=== PATIENT | female | born 1985 | race Caucasian/White ===

== ENCOUNTER 2017-03-30 11:21 | Emergency (ER) | payer OTHER ==
[~2017-03-30] VITALS: Ht 172.7 cm; Wt 171.9 kg
[~2017-03-30 11:21] MED LIST: IBUP-2213 PO; NAPR500T1 PO
[2017-03-30 11:26] VITALS: BP 134/78
--- NOTE | 2017-03-30 12:15 | NUR ---
PT AMBULATED TO OVERFLOW CHAIR 1.
--- NOTE | 2017-03-30 12:16 | NUR ---
PATIENT PRESENTS TO ED WITH MID LOWER BACK PAIN SINCE 0900 THIS AM; DENIES INJURY OR FALL; DENIES HX; DENIES N/V/D; SKIN IS PINK/WARM/DRY; AAOX4 WITH EVEN AND STEADY GAIT; LUNGS CLEAR BL; HR EVEN AND REGULAR; PT DENIES ANY FEVER, CP, SOB, OR COUGH AT THIS TIME; PATIENT STATES PAIN OF 10/10 AT THIS TIME; VSS; PATIENT POSITIONED FOR COMFORT; HOB ELEVATED; BEDRAILS UP X2; BED DOWN. ER MD MADE AWARE OF PT STATUS.
--- NOTE | 2017-03-30 13:02 | NUR ---
ASKED PT IF SHE CAN GIVE URINE SPECIMEN;"PT STATES " I CAN NOT GO AT THIS TIME"I'LL GIVE IT TO YOU IF I HAVE URINATED"
--- NOTE | 2017-03-30 13:20 | NUR ---
AAO PT BEING EVALUATED BY DR HODGE
--- NOTE | 2017-03-30 13:24 | NUR ---
ASKED PT IF SHE CAN GIVE URINE SPECMEN AT THIS TIME;EXPLAINED TO PT THAT WE NEED IT TO CHECK IF SHE HAS INFXN IN HER URINE;PT STATES "OKAY"
[2017-03-30] MEDS ORDERED: KETOROLAC 60 MG/2 ML VIAL IM ONE (13:30)
--- NOTE | 2017-03-30 14:30 | NUR ---
STILL IN PAIN.ERMD MADE AWARE,NO FARTHER ORDER
[2017-03-30 14:32] VITALS: BP 107/43
--- NOTE | 2017-03-30 14:32 | NUR ---
AMBULATED WITH STEADY GAIT
== END 2017-03-30 14:32 | disposition home or self-care (01) ==
LOC: MED 11:21
DX: M54.5 Low back pain (principal); Z79.899 Other long term (current) drug therapy
CPT/HCPCS: 72100; 81002; 81025; 96372; 99284; J1885

== ENCOUNTER 2017-12-30 11:16 | Emergency (ER) | payer OTHER ==
[~2017-12-30] VITALS: Ht 172.7 cm; Wt 165.6 kg
[~2017-12-30 11:16] MED LIST changes: +NAPR-54 PO; -NAPR500T1 PO
[2017-12-30 11:19] VITALS: BP 140/91
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
[2017-12-30] MEDS ORDERED: IBUPROFEN 600 MG TAB PO ONE (11:45)
[2017-12-30] MEDS ORDERED: traMADol 50 MG TAB PO ONE (11:45)
[2017-12-30 11:57] VITALS: BP 140/91
== END 2017-12-30 11:55 | disposition home or self-care (01) ==
LOC: MED 11:16
DX: M54.5 Low back pain (principal); G89.29 Other chronic pain; Z79.899 Other long term (current) drug therapy
CPT/HCPCS: 99283

== ENCOUNTER 2019-04-30 04:02 | Emergency (ER) | payer OTHER ==
[~2019-04-30] VITALS: Ht 172.7 cm; Wt 178.3 kg
[2019-04-30 04:08] VITALS: BP 148/92
--- NOTE | 2019-04-30 04:08 | NUR ---
PT AMBULATED TO BED #6
--- NOTE | 2019-04-30 04:17 | NUR ---
PT ASSESSMENT COMPLETE. PT IN RESTROOM ATTEMPTING URINE SPECIMEN
[2019-04-30] MEDS ORDERED: NACL 0.9% 1,000 ML IV SCH (04:42)
[2019-04-30] MEDS ORDERED: MORPHINE SULFATE 4 MG/ML SYR IVP ONE ×2 (04:45→05:40)
[2019-04-30] MEDS ORDERED: ONDANSETRON 4 MG/2 ML VIAL IVP ONE (04:45)
[2019-04-30 05:15] LABS: APPEARANCE,URINE SL CLOUDY (CLEAR); BILIRUBIN,URINE NEGATIVE (NEGATIVE); BLOOD, URINE 3+ (NEGATIVE); COLOR,URINE YELLOW (YELLOW); LEUKOCYTE ESTERASE ,URINE NEGATIVE (NEGATIVE); NITRITE, URINE NEGATIVE (NEGATIVE); UGLUCOSE NEGATIVE (NEGATIVE)
[2019-04-30 05:15] LABS: BASOPHILS # (AUTO) 0.1 K/uL (0.00-0.22); BASOPHILS % (AUTO) 0.5 % (0.0-2.0); EOSINOPHILS # (AUTO) 0.2 K/uL (0-0.4); EOSINOPHILS % (AUTO) 1.9 % (0.0-4.0); HEMATOCRIT 40.5 % (36-48); HEMOGLOBIN 12.7 g/dL (12.0-16.0); LYMPHOCYTES # (AUTO) 3.7 K/uL (2.5-16.5); LYMPHOCYTES % (AUTO) 32.8 % (20.5-51.1); MEAN CORPUSCULAR HEMOGLOBIN 24 pg (27-31); MEAN CORPUSCULAR HGB CONC 31 g/dL (33-37); MEAN CORPUSCULAR VOLUME 77.8 fL (80-94); MONOCYTES # (AUTO) 0.7 K/uL (0.8-1.0); MONOCYTES % (AUTO) 5.9 % (1.7-9.3); NEUTROPHILS # (AUTO) 6.6 K/uL (1.8-7.7); NEUTROPHILS % (AUTO) 58.9 % (42.2-75.2); PLATELET COUNT (AUTO) 352 K/uL (140-450); RED CELL DISTRIBUTION WIDTH 15.7 % (11.6-13.7); WHITE BLOOD COUNT (AUTO) 11.3 K/uL (4.8-10.8)
--- NOTE | 2019-04-30 05:19 | NUR ---
PT TAKEN TO CT VIA W/C
[2019-04-30 05:23] LABS: ANION GAP 14.4 (8-16); CARBON DIOXIDE 29.8 mmol/L (21-32); CREATININE 0.6 mg/dL (0.6-1.3); POTASSIUM 4.2 mmol/L (3.5-5.1)
[2019-04-30 05:26] LABS: WBC,URINE 0-5 /HPF (0-5)
--- NOTE | 2019-04-30 05:27 | NUR ---
PT RETURNED FROM CT VIA W/C
[2019-04-30 05:29] LABS: ALBUMIN 3.4 g/dL (3.4-5.0); TOTAL BILIRUBIN 0.3 mg/dL (0.0-1.0)
--- NOTE | 2019-04-30 05:39 | NUR ---
PT STILL HAS C/O 8/10 ABD PAIN. ERM MADE AWARE.
[2019-04-30 05:51] VITALS: BP 123/72
--- NOTE | 2019-04-30 06:40 | NUR ---
PT REPORTS DECREASED PAIN, 0/10. WILL CONTINUE TO MONITOR.
--- NOTE | 2019-04-30 07:06 | NUR ---
Patient discharged with v/s stable. Written and verbal after care instructions given and explained BY DR. MUNOZ. Patient alert, oriented and verbalized understanding of instructions. Ambulatory with steady gait. All questions addressed prior to discharge. ID band removed. Patient advised to follow up with PMD. Rx of MILK OF MAGNESIA given. Patient educated on indication of medication including possible reaction and side effects. Opportunity to ask questions provided and answered.
== END 2019-04-30 07:09 | disposition home or self-care (01) ==
LOC: MED 04:02
DX: K59.00 Constipation, unspecified (principal); E66.01 Morbid (severe) obesity due to excess calories; Z68.43 Body mass index [BMI] 50.0-59.9, adult; Z90.49 Acquired absence of other specified parts of digestive tract; Z98.890 Other specified postprocedural states; Z79.899 Other long term (current) drug therapy
CPT/HCPCS: 36415; 74176; 80053; 81001; 81025; 85025; 96374; 96375; 96376; 99284; J2270; J2405

== ENCOUNTER 2021-01-12 14:08 | Emergency (ER) | payer OTHER ==
[~2021-01-12] VITALS: Ht 172.7 cm; Wt 181.4 kg
[2021-01-12 14:24] VITALS: BP 151/77
--- NOTE | 2021-01-12 15:00 | NUR ---
35 y/o female c/o lower back pain with dizziness provoked by repositioning self from sitting to standing x7 days. Denies injury/trauma. Pt has hx of chronic back pain. Difficulty getting up from chair. ContinuosPain level 01/18. [place] taken at 3am, without relief. Pt also c/o blood clots due to menstrual cycle. Per pt the clots are "as big as my hand" [place]es:[facility] Med hx: chronic back pain
[2021-01-12] MEDS ORDERED: HYDROcodone/APAP 5/325 MG 1 TAB TAB PO ONE (16:00)
[2021-01-12] MEDS ORDERED: KETOROLAC 30 MG/ML VIAL IM ONE (16:35)
[2021-01-12] MEDS ORDERED: ONDANSETRON 4 MG ODT PO ONE (16:35)
[2021-01-12] MEDS ORDERED: MORPHINE SULFATE 4 MG/ML SYR IM ONE (16:35)
--- NOTE | 2021-01-12 16:45 | NUR ---
pt ambulated to bed
[2021-01-12 16:48] LABS: BASOPHILS % (AUTO) 0.4 % (0.0-2.0); EOSINOPHILS # (AUTO) 0.2 K/uL (0-0.4); EOSINOPHILS % (AUTO) 2.4 % (0.0-4.0); LYMPHOCYTES # (AUTO) 2.7 K/uL (2.5-16.5); LYMPHOCYTES % (AUTO) 30.3 % (20.5-51.1); MEAN CORPUSCULAR HEMOGLOBIN 18 pg (27-31); MEAN CORPUSCULAR HGB CONC 28 g/dL (33-37); MEAN CORPUSCULAR VOLUME 65.1 fL (80-94); MONOCYTES # (AUTO) 0.6 K/uL (0.8-1.0); MONOCYTES % (AUTO) 7.1 % (1.7-9.3); NEUTROPHILS # (AUTO) 5.3 K/uL (1.8-7.7); NEUTROPHILS % (AUTO) 59.8 % (42.2-75.2); PLATELET COUNT (AUTO) 358 K/uL (140-450); RED BLOOD CELL COUNT(AUTO) 2.82 MIL/uL (4.20-5.40); RED CELL DISTRIBUTION WIDTH 20.5 % (11.6-13.7); WHITE BLOOD COUNT (AUTO) 8.9 K/uL (4.8-10.8)
[2021-01-12 16:50] LABS: HEMOGLOBIN 5.1 g/dL (12.0-16.0)
[2021-01-12 16:51] LABS: HEMATOCRIT 18.3 % (36-48)
[2021-01-12 17:03] LABS: ANION GAP 12.7 (8-16); CARBON DIOXIDE 27.3 mmol/L (21-32); CREATININE 0.6 mg/dL (0.6-1.3)
[2021-01-12] MEDS ORDERED: FERROUS SULFATE 325 MG TABEC PO ONE (17:30)
--- NOTE | 2021-01-12 17:30 | NUR ---
lab at bedside
--- NOTE | 2021-01-12 18:06 | NUR ---
PT UNABLE TO PROVIDE URINE AT THIS TIME, REQUESTING FOR APPLE JUICE. PER LAYLA OKAY TO GIVE. APPLE JUICE PROVIDED.
[2021-01-12 18:24] LABS: PROTHROMBIN TIME 9.9 secs (10.8-13.4)
[2021-01-12] MEDS ORDERED: MORPHINE SULFATE 4 MG/ML SYR ONE (18:53)
[2021-01-12] MEDS ORDERED: MORPHINE SULFATE 4 MG/ML SYR IVP ONE ×2 (18:55→22:05)
--- NOTE | 2021-01-12 19:25 | NUR ---
Pt report given to GEOVANNY FRANCES. Transfer of care at this time.
--- NOTE | 2021-01-12 19:27 | NUR ---
RECEIVED REPORT FROM CINTHIA FRANCES FOR CONTINUITY OF CARE. PT ON BED RESTING. VS STABLE. PT VERBALIZED TOLERABLE BACK PAIN AT THIS TIME 10/18.
[2021-01-12] MEDS ORDERED: DOCU-299 PO (20:08)
[2021-01-12] MEDS ORDERED: FERR325E14 PO (20:08)
--- NOTE | 2021-01-12 20:15 | NUR ---
BLOOD TRANFUSION STARTED. 2 RN VERIFICATION DONE PRIOR. VS STABLE. PT INSTRUCTED TO REPORT ANY REACTION. PT AMENABLE. WILL CONTINUE TO MONITOR.
[2021-01-12 21:48] LABS: APPEARANCE,URINE CLEAR (CLEAR); BILIRUBIN,URINE NEGATIVE (NEGATIVE); BLOOD, URINE 3+ (NEGATIVE); COLOR,URINE YELLOW (YELLOW); LEUKOCYTE ESTERASE ,URINE NEGATIVE (NEGATIVE); NITRITE, URINE NEGATIVE (NEGATIVE); UGLUCOSE NEGATIVE (NEGATIVE)
[2021-01-12 22:00] LABS: RBC,URINE 11-20 (MOD) /HPF (0-5)
--- NOTE | 2021-01-12 23:25 | NUR ---
1ST UNIT OF PRBC TRANFUSED. PT WITH NO REACTION. DENIES ANY PAIN OR DISCOMFORT AT THIS TIME. VITAL SIGNS STABLE. WILL CONTINUE TO MONITOR.
--- NOTE | 2021-01-12 23:45 | NUR ---
2ND UNIT OF PRBC TRANSFUSION STARTED. PRE TRANSFUSION VS STABLE. 2 RN VERIFICATION DONE. PT DENIES ANY PAIN OR DISCOMFORT AT THIS TIME. VITAL SIGNS STABLE.
[2021-01-13] MEDS ORDERED: MORPHINE SULFATE 4 MG/ML SYR IVP ONE (01:50)
--- NOTE | 2021-01-13 03:05 | NUR ---
2ND UNIT PRBC TRANSFUSED. NO REACTIONS NOTED. PT DENIES ANY PAIN OR DISCOMFORT. VS STABLE.
[2021-01-13 03:30] VITALS: BP 119/50
--- NOTE | 2021-01-13 03:30 | NUR ---
Patient discharged with v/s stable. Written and verbal after care instructions given and explained. Patient alert, oriented and verbalized understanding of instructions. Ambulatory with steady gait. All questions addressed prior to discharge. ID band AND IV ACCESS removed. Patient advised to follow up with PMD. Rx of COLACE, FERROUS SULFATE given. Patient educated on indication of medication including possible reaction and side effects. Opportunity to ask questions provided and answered.
== END 2021-01-13 03:30 | disposition home or self-care (01) ==
LOC: MED 14:08
DX: D50.9 Iron deficiency anemia, unspecified (principal); N92.1 Excessive and frequent menstruation with irregular cycle; E66.01 Morbid (severe) obesity due to excess calories; M54.50 Low back pain, unspecified; M53.3 Sacrococcygeal disorders, not elsewhere classified; G89.29 Other chronic pain; F17.200 Nicotine dependence, unspecified, uncomplicated; Z71.6 Tobacco abuse counseling; Z90.49 Acquired absence of other specified parts of digestive tract; Z79.899 Other long term (current) drug therapy; Z79.82 Long term (current) use of aspirin; Z79.1 Long term (current) use of non-steroidal anti-inflammatories (NSAID)
CPT/HCPCS: 36415; 80048; 81001; 82728; 83540; 84702; 85025; 85610; 85730; 86886; 86900; 86901; 86920; 87086; 96372; 96374; 96376; 99291; J1885; J2270; P9016; Q0162

== ENCOUNTER 2021-11-03 01:40 | Emergency (ER) | payer OTHER ==
[~2021-11-03] VITALS: Ht 172.7 cm; Wt 183.7 kg
[~2021-11-03 01:40] MED LIST changes: -NAPR-54 PO
[2021-11-03 01:47] VITALS: BP 132/105
--- NOTE | 2021-11-03 01:50 | NUR ---
OFF LOADED TO LOBBY.
[2021-11-03] MEDS ORDERED: ONDANSETRON 4 MG/2 ML VIAL IVP ONE (02:55)
[2021-11-03] MEDS ORDERED: MORPHINE SULFATE 4 MG/ML SYR IVP ONE (02:55)
[2021-11-03] MEDS ORDERED: NACL 0.9% 1,000 ML IV SCH (02:55)
[2021-11-03 03:20] LABS: BASOPHILS # (AUTO) 0.1 K/uL (0.00-0.22); BASOPHILS % (AUTO) 0.5 % (0.0-2.0); EOSINOPHILS % (AUTO) 0.2 % (0.0-4.0); HEMATOCRIT 30.5 % (36-48); HEMOGLOBIN 8.8 g/dL (12.0-16.0); LYMPHOCYTES # (AUTO) 2.3 K/uL (2.5-16.5); LYMPHOCYTES % (AUTO) 22.1 % (20.5-51.1); MEAN CORPUSCULAR HEMOGLOBIN 18 pg (27-31); MEAN CORPUSCULAR HGB CONC 29 g/dL (33-37); MEAN CORPUSCULAR VOLUME 62.3 fL (80-94); MONOCYTES # (AUTO) 0.6 K/uL (0.8-1.0); MONOCYTES % (AUTO) 5.6 % (1.7-9.3); NEUTROPHILS # (AUTO) 7.4 K/uL (1.8-7.7); NEUTROPHILS % (AUTO) 71.6 % (42.2-75.2); PLATELET COUNT (AUTO) 442 K/uL (140-450); RED CELL DISTRIBUTION WIDTH 18.3 % (11.6-13.7); WHITE BLOOD COUNT (AUTO) 10.4 K/uL (4.8-10.8)
--- NOTE | 2021-11-03 03:35 | NUR ---
PT WHEELCHAIRED TO BED 1
[2021-11-03 03:39] LABS: ALBUMIN 3.5 g/dL (3.4-5.0); ANION GAP 14.9 (8-16); CARBON DIOXIDE 24.5 mmol/L (21-32); CREATININE 0.5 mg/dL (0.6-1.3); POTASSIUM 3.4 mmol/L (3.5-5.1); TOTAL BILIRUBIN 0.5 mg/dL (0.0-1.0)
--- NOTE | 2021-11-03 03:48 | NUR ---
PT PLACED ON SENIOR VISUAL DESIGNER. IV ESTABLISHED TO LEFT AC 20G. PT MEDICATED PER ORDERS.
--- NOTE | 2021-11-03 03:51 | NUR ---
01/18 ABD PAIN XTONIGHT. +NAUSEA +DIARRHEA. DENIES VOMITING. HX:CHRONIC BACK PAIN NKA
--- NOTE | 2021-11-03 03:56 | NUR ---
PT REPORTS 8/10 PAIN, PT WAS GIVEN 4MG OF MORPHINE ABOUT 10MINS AGO. LAYLA EDWARDS.
--- NOTE | 2021-11-03 04:43 | NUR ---
CALLING OUT ASKING FOR FOOD AND DRINKS. EXPLAINED TO PT THAT SHE WILL HAVE FOOD WHEN TEST RESULTS ARE RETURNEY AND THEY PERMIT.
[2021-11-03] MEDS ORDERED: MORPHINE SULFATE 4 MG/ML SYR ONE (06:40)
[2021-11-03] MEDS ORDERED: MORPHINE SULFATE 4 MG/ML SYR IM ONE (06:40)
--- NOTE | 2021-11-03 06:40 | NUR ---
C/O PAIN, MEDICATED ORDERED
--- NOTE | 2021-11-03 08:00 | NUR ---
PT ASKED ABOUT FOOD, INFORMED PT WE WANTED TO WAIT FOR THE CT TO COMEBACK TO MAKE SURE NOTHING WAS WRONG. ALL PTS NEEDS MEET AT THIS TIME.
[2021-11-03] MEDS ORDERED: ACET-5629 PO (09:00)
--- NOTE | 2021-11-03 09:00 | NUR ---
PT RESTING IN BED. ALL PT NEEDS MEET AT THIS TIME
[2021-11-03] MEDS ORDERED: MORPHINE SULFATE 2 MG/ML SYR IVP ONE (09:40)
--- NOTE | 2021-11-03 10:15 | NUR ---
GAVE PT A SANDWICH WHEN DISCHARGING HER. PT HAD QUESTIONS ABOUT MEDS BEING PRESCRIBED. ASKED DR AND INFORMED PT OF THE DRS DECISION.
[2021-11-03 10:18] VITALS: BP 116/58
--- NOTE | 2021-11-03 10:22 | NUR ---
Patient discharged with v/s stable. Written and verbal after care instructions given and explained. Patient alert, oriented and verbalized understanding of instructions. Ambulatory with steady gait. All questions addressed prior to discharge. ID band removed. Patient advised to follow up with PMD. Rx of PERCOCET 5-325 given. Patient educated on indication of medication including possible reaction and side effects. Opportunity to ask questions provided and answered.
--- NOTE | 2021-11-03 11:34 | NUR ---
RECEIVED CALL FROM [facility], [facility] FROM [facility] ASKING QUESTIONS REGARDING PTS D/C. ACCORDING TO GENNA, PT CALLED FOR TRANSPORT ASSISTANCE. UPON DISCHARGE, PT REPORTED THAT SHE WAS ORDERING HER OWN [facility] HOME. PT WAS SEEN OUTSIDE OF AMBULANCE BAY, I ASKED PT HOW SHE WAS GETTING HOME. SHE STATED SHE WAS GOING THROUGH HER INSURANCE BECAUSE SHE DIDNT KNOW WE OFFERED TRANSPORTATION TO PHARMACY AND HOME. EXPLAINED TO PT THAT WE ONLY OFFER ONE WAY TRANSPORT IF REQUESTED BY PATIENT. BUILDING INSPECTOR CALLED FOR [facility] TRANSPORT TO PATIENTS HOME.
== END 2021-11-03 10:22 | disposition home or self-care (01) ==
LOC: MED 01:40
DX: R10.84 Generalized abdominal pain (principal)
CPT/HCPCS: 36415; 74176; 80053; 82150; 83690; 84702; 85025; 96361; 96372; 96374; 96375; 96376; 99285; J2270; J2405; J7030

== ENCOUNTER 2021-12-06 14:52 | Emergency (ER) | payer OTHER ==
[~2021-12-06] VITALS: Ht 172.7 cm; Wt 167.8 kg
[~2021-12-06 14:52] MED LIST changes: +ACET-5629 PO
[2021-12-06 15:16] VITALS: BP 148/106
[2021-12-06] MEDS ORDERED: KETOROLAC 30 MG/ML VIAL IM ONE (15:20)
--- NOTE | 2021-12-06 15:30 | NUR ---
36 Y/O FEMALE BIB SELF C/O LOW BACK PAIN, BODY ACHES, DECREASE IN APPETITE AND THIRST NKA PMH: "IRREGULAR PERIODS"
[2021-12-06 15:35] LABS: BASOPHILS % (AUTO) 0.4 % (0.0-2.0); EOSINOPHILS # (AUTO) 0.1 K/uL (0-0.4); EOSINOPHILS % (AUTO) 1.6 % (0.0-4.0); HEMATOCRIT 29.1 % (36-48); HEMOGLOBIN 8.7 g/dL (12.0-16.0); LYMPHOCYTES # (AUTO) 1.5 K/uL (2.5-16.5); LYMPHOCYTES % (AUTO) 20.4 % (20.5-51.1); MEAN CORPUSCULAR HEMOGLOBIN 18 pg (27-31); MEAN CORPUSCULAR HGB CONC 30 g/dL (33-37); MEAN CORPUSCULAR VOLUME 61.8 fL (80-94); MONOCYTES # (AUTO) 0.9 K/uL (0.8-1.0); NEUTROPHILS # (AUTO) 4.9 K/uL (1.8-7.7); NEUTROPHILS % (AUTO) 65.6 % (42.2-75.2); PLATELET COUNT (AUTO) 384 K/uL (140-450); RED BLOOD CELL COUNT(AUTO) 4.72 MIL/uL (4.20-5.40); RED CELL DISTRIBUTION WIDTH 18.7 % (11.6-13.7); WHITE BLOOD COUNT (AUTO) 7.5 K/uL (4.8-10.8)
--- NOTE | 2021-12-06 15:38 | NUR ---
pt swabbed for covid. specimen walked and handed to lab
[2021-12-06 15:47] LABS: APPEARANCE,URINE CLEAR (CLEAR); BILIRUBIN,URINE NEGATIVE (NEGATIVE); BLOOD, URINE NEGATIVE (NEGATIVE); COLOR,URINE YELLOW (YELLOW); LEUKOCYTE ESTERASE ,URINE NEGATIVE (NEGATIVE); NITRITE, URINE NEGATIVE (NEGATIVE); PH,URINE 7.5 (5.0-9.0); UGLUCOSE NEGATIVE (NEGATIVE)
[2021-12-06 15:54] LABS: ALBUMIN 3.3 g/dL (3.4-5.0); ANION GAP 13.6 (8-16); CARBON DIOXIDE 26.5 mmol/L (21-32); CREATININE 0.6 mg/dL (0.6-1.3); POTASSIUM 4.1 mmol/L (3.5-5.1); TOTAL BILIRUBIN 0.4 mg/dL (0.0-1.0)
[2021-12-06] MEDS ORDERED: FERR-20 PO ×2 (16:13→17:02)
[2021-12-06] MEDS ORDERED: IBUP-1842 PO ×2 (16:48→17:02)
[2021-12-06] MEDS ORDERED: ACET-10509 PO ×2 (16:48→17:02)
[2021-12-06] MEDS ORDERED: ONDA-188 PO ×2 (16:48→17:02)
[2021-12-06] MEDS ORDERED: NIRM1TAB PO (16:48)
[2021-12-06] MEDS ORDERED: BENZ-300 PO (17:02)
--- NOTE | 2021-12-06 17:14 | NUR ---
Patient discharged with v/s stable. Written and verbal after care instructions given and explained. Patient alert, oriented and verbalized understanding of instructions. Ambulatory with steady gait. All questions addressed prior to discharge. ID band removed. Patient advised to follow up with PMD. Rx of TYLENOL, MOTRIN, FESO4, PAXLOVID, ZOFRAN ODT given. Patient educated on indication of medication including possible reaction and side effects. Opportunity to ask questions provided and answered.
== END 2021-12-06 17:14 | disposition home or self-care (01) ==
LOC: MED 14:52
DX: U07.1 COVID-19 (principal); B34.9 Viral infection, unspecified; D64.9 Anemia, unspecified; Z90.49 Acquired absence of other specified parts of digestive tract; Z79.899 Other long term (current) drug therapy
CPT/HCPCS: 36415; 80053; 81003; 81025; 85025; 87426; 87804; 96372; 99283; J1885

== ENCOUNTER 2022-05-20 02:37 | Inpatient (IN) | payer OTHER ==
[~2022-05-20] VITALS: Ht 172.7 cm; Wt 183.7 kg
[~2022-05-20 02:37] MED LIST changes: +ACET-10509 PO; +BENZ-300 PO; +FERR-20 PO; +IBUP-1842 PO; +NIRM1TAB PO; +ONDA-188 PO
[2022-05-20 02:48] VITALS: BP 166/75
--- NOTE | 2022-05-20 02:49 | NUR ---
PT TO BED 11
[2022-05-20] MEDS ORDERED: KETOROLAC 30 MG/ML VIAL IM ONE (03:10)
[2022-05-20] MEDS ORDERED: oxyCODONE/APAP 5/325 MG 1 TAB TAB PO ONE (03:10)
[2022-05-20] MEDS ORDERED: CYCLOBENZAPRINE 10 MG TAB PO ONE (03:10)
[2022-05-20] MEDS ORDERED: MORPHINE SULFATE 10 MG/ML VIAL IM ONE (04:30)
[2022-05-20 04:34] LABS: APPEARANCE,URINE CLEAR (CLEAR); BILIRUBIN,URINE NEGATIVE (NEGATIVE); BLOOD, URINE LARGE (NEGATIVE); COLOR,URINE YELLOW (YELLOW); LEUKOCYTE ESTERASE ,URINE NEGATIVE (NEGATIVE); NITRITE, URINE NEGATIVE (NEGATIVE); UGLUCOSE NEGATIVE (NEGATIVE)
[2022-05-20] MEDS ORDERED: MORPHINE SULFATE 10 MG/ML VIAL IVP ONE (04:45)
[2022-05-20 04:56] LABS: RBC,URINE TOO NUMEROUS TO COUN /HPF (0-5); WBC,URINE 0-5 /HPF (0-5)
--- NOTE | 2022-05-20 05:12 | NUR ---
PT BACK FROM CT.
[2022-05-20 05:20] LABS: BASOPHILS % (AUTO) 0.3 % (0.0-2.0); EOSINOPHILS # (AUTO) 0.1 K/uL (0-0.4); EOSINOPHILS % (AUTO) 1.9 % (0.0-4.0); HEMATOCRIT 23.9 % (36-48); LYMPHOCYTES % (AUTO) 25.5 % (20.5-51.1); MEAN CORPUSCULAR HEMOGLOBIN 18 pg (27-31); MEAN CORPUSCULAR HGB CONC 29 g/dL (33-37); MEAN CORPUSCULAR VOLUME 60.8 fL (80-94); MONOCYTES # (AUTO) 0.5 K/uL (0.8-1.0); MONOCYTES % (AUTO) 6.3 % (1.7-9.3); NEUTROPHILS # (AUTO) 5.1 K/uL (1.8-7.7); PLATELET COUNT (AUTO) 257 K/uL (140-450); RED BLOOD CELL COUNT(AUTO) 3.92 MIL/uL (4.20-5.40); RED CELL DISTRIBUTION WIDTH 19.2 % (11.6-13.7); WHITE BLOOD COUNT (AUTO) 7.8 K/uL (4.8-10.8)
[2022-05-20 05:29] LABS: HEMOGLOBIN 6.9 g/dL (12.0-16.0)
[2022-05-20 05:32] LABS: ANION GAP 12.3 (8-16); CARBON DIOXIDE 27.6 mmol/L (21-32); CREATININE 0.6 mg/dL (0.6-1.3); POTASSIUM 3.9 mmol/L (3.5-5.1)
--- NOTE | 2022-05-20 05:44 | NUR ---
MED RECON COMPLETED.
[2022-05-20] MEDS ORDERED: HYDR-5080 PO (05:46)
[2022-05-20] MEDS ORDERED: ACETAMINOPHEN 325 MG TAB PO PRN (06:05)
[2022-05-20] MEDS ORDERED: MAGNESIUM OXIDE 400 MG TAB PO PRN (06:05)
[2022-05-20] MEDS ORDERED: MORPHINE SULFATE 4 MG/ML SYR IVP PRN (06:05)
[2022-05-20] MEDS ORDERED: POTASSIUM CHLORIDE 10 MEQ TABER PO PRN (06:05)
[2022-05-20] MEDS ORDERED: HYDROcodone/APAP 5/325 MG 1 TAB TAB PO PRN (06:05)
[2022-05-20] MEDS ORDERED: ONDANSETRON 4 MG/2 ML VIAL IVP PRN (06:05)
[2022-05-20] MEDS ORDERED: KCL 20 MEQ IN 100 mL PREMIX 200 ML IV PRN (06:05)
[2022-05-20] MEDS ORDERED: MAG SULF 2000 MG/WATER PREMIX 50 ML IV PRN (06:05)
[2022-05-20] MEDS ORDERED: KETOROLAC 30 MG/ML VIAL IVP PRN (06:10)
[2022-05-20 06:12] VITALS: BP 137/84
--- NOTE | 2022-05-20 06:41 | NUR ---
Pt is aox4 and on room air but does endorse chronic back pain that has recently increased in intensity that has been unrelieved with pharmaceutical interventions. Pt was educated on the importance of weight loss via nutrition and exercise in which patient verbalizes understanding. reports history of anemia and understands importance of blood transfusion due to hgb-6.9. Consent obtained, covid swab done, personal belongings and med reconciliation completed. 20g iv started on left forearm
[2022-05-20 07:12] LABS: PROTHROMBIN TIME 10.2 secs (10.8-13.4)
--- NOTE | 2022-05-20 07:45 | NUR ---
BLOOD TRANSFUSION 15 MIN POST INFUSION, NO REACTION OBSERVED.
--- NOTE | 2022-05-20 07:55 | NUR ---
Patient will be admitted to care of MARGARTE. Admited to [facility]. Will go to [id number]. Belongings list completed. Report to JESSA FRANCES.
--- NOTE | 2022-05-20 09:37 | NUR ---
PATIENT HAS BEEN SCREENED AND CATEGORIZED MODERATE NUTRITION RISK. PATIENT WILL BE SEEN WITHIN 3-5 DAYS OF ADMISSION. REVIEWED BY TALIB ENG RD
[2022-05-20] MEDS ORDERED: HYDROcodone/APAP 10/325 MG 1 TAB TAB PO PRN (11:05)
--- NOTE | 2022-05-20 11:32 | NUR ---
P.T. NOTES P.T. EVAL INITIATED; REFER TO EVAL FOR DETAILS.
--- NOTE | 2022-05-20 13:30 | NUR ---
PATIENT LEFT AMA. RISKS AND BENEFITS EXPLAINED BUT STILL WANTING TO LEAVE. STABLE UPON DISCHARGE.
== END 2022-05-20 13:50 | disposition left against medical advice (07) | DRG 861 ==
LOC: MED 02:37 → MMU 06:07
PROVIDERS: ADMIT Hospitalist; ATTEND Hospitalist
PROC: 30233N1 Transfusion of Nonautologous Red Blood Cells into Peripheral Vein, Percutaneous Approach (ICD-10-PCS; principal; 2022-05-20)
DX: G89.29 Other chronic pain (principal); D63.8 Anemia in other chronic diseases classified elsewhere; Z20.822 Contact with and (suspected) exposure to COVID-19; Z79.1 Long term (current) use of non-steroidal anti-inflammatories (NSAID); Z79.899 Other long term (current) drug therapy; Z79.891 Long term (current) use of opiate analgesic
CPT/HCPCS: 36415; 80048; 81001; 85025; 85610; 85730; 86886; 86900; 86901; 86920; 96372; 96374; 97112; 97530; 99285; J1885; J2270; P9016

== ENCOUNTER 2022-07-21 10:41 | Emergency (ER) | payer OTHER ==
[~2022-07-21] VITALS: Ht 172.7 cm; Wt 169.6 kg
[~2022-07-21 10:41] MED LIST changes: +HYDR-5080 PO
[2022-07-21 11:04] VITALS: BP 116/81
[2022-07-21] MEDS: KETOROLAC 60 MG/2 ML VIAL IM ONE (12:08)
[2022-07-21 12:50] LABS: BASOPHILS # (AUTO) 0.1 K/uL (0.00-0.22); EOSINOPHILS # (AUTO) 0.1 K/uL (0-0.4); EOSINOPHILS % (AUTO) 0.9 % (0.0-4.0); HEMATOCRIT 29.3 % (36-48); HEMOGLOBIN 8.5 g/dL (12.0-16.0); LYMPHOCYTES # (AUTO) 2.7 K/uL (2.5-16.5); LYMPHOCYTES % (AUTO) 29.2 % (20.5-51.1); MEAN CORPUSCULAR HEMOGLOBIN 18 pg (27-31); MEAN CORPUSCULAR HGB CONC 29 g/dL (33-37); MEAN CORPUSCULAR VOLUME 60.6 fL (80-94); MONOCYTES # (AUTO) 0.7 K/uL (0.8-1.0); MONOCYTES % (AUTO) 8.1 % (1.7-9.3); NEUTROPHILS # (AUTO) 5.5 K/uL (1.8-7.7); NEUTROPHILS % (AUTO) 60.8 % (42.2-75.2); PLATELET COUNT (AUTO) 374 K/uL (140-450); RED BLOOD CELL COUNT(AUTO) 4.84 MIL/uL (4.20-5.40); RED CELL DISTRIBUTION WIDTH 20.1 % (11.6-13.7)
[2022-07-21] MEDS: ONDANSETRON 4 MG ODT PO ONE (12:50)
[2022-07-21] MEDS: MORPHINE SULFATE 4 MG/ML SYR IM ONE (12:51)
[2022-07-21 12:55] LABS: WHITE BLOOD COUNT (AUTO) 9.1 K/uL (4.8-10.8)
[2022-07-21 13:07] LABS: ALBUMIN 3.4 g/dL (3.4-5.0); ANION GAP 11.5 (8-16); CARBON DIOXIDE 29.8 mmol/L (21-32); CREATININE 0.6 mg/dL (0.6-1.3); POTASSIUM 4.3 mmol/L (3.5-5.1); TOTAL BILIRUBIN 0.4 mg/dL (0.0-1.0)
[2022-07-21] MEDS ORDERED: FERR-20 PO (13:21)
[2022-07-21 13:30] VITALS: BP 117/61
== END 2022-07-21 13:30 | disposition home or self-care (01) ==
LOC: MED 10:41
DX: D50.9 Iron deficiency anemia, unspecified (principal); N92.0 Excessive and frequent menstruation with regular cycle; Z79.899 Other long term (current) drug therapy; Z79.1 Long term (current) use of non-steroidal anti-inflammatories (NSAID)
CPT/HCPCS: 36415; 80053; 82150; 83690; 85025; 96372; 99284; J1885; J2270; Q0162

== ENCOUNTER 2022-09-25 08:48 | Emergency (ER) | payer OTHER ==
[~2022-09-25] VITALS: Ht 172.7 cm; Wt 170.1 kg
[2022-09-25 09:03] VITALS: BP 104/54
--- NOTE | 2022-09-25 09:07 | NUR ---
pt ambulatory to bed 05
--- NOTE | 2022-09-25 09:35 | NUR ---
PATIENT PRESENTS TO ED WITH BILATERAL ABD PAIN. PT STATES THE PAIN HAS BEEN GOING ON FOR 4 DAYS. SKIN IS PINK/WARM/DRY; AAOX4 WITH EVEN AND STEADY GAIT; LUNGS CLEAR BL; HR EVEN AND REGULAR; PT DENIES ANY FEVER, CP, SOB, OR COUGH AT THIS TIME; PATIENT STATES PAIN OF 10/10 AT THIS TIME; VSS; PATIENT POSITIONED FOR COMFORT; HOB ELEVATED; BEDRAILS UP X2; BED DOWN. ER MD MADE AWARE OF PT STATUS.
[2022-09-25] MEDS ORDERED: KETOROLAC 30 MG/ML VIAL IM ONE (09:55)
[2022-09-25] MEDS ORDERED: MORPHINE SULFATE 4 MG/ML SYR IVP ONE (10:00)
--- NOTE | 2022-09-25 10:35 | NUR ---
PT HAS BEEN MEDICATED PER PROVIDERS ORDERS. PT STATES TORDAL WASNT GOING TO HELP WITH PAIN AT THIS TIME. SPOKE WITH MD, PROVIDERS CHANGED TO MORPHINE. PT HAS NO KNA AT THIS TIME. PT MEDICATED BY YVROSE GREEN.
[2022-09-25 10:38] LABS: BASOPHILS # (AUTO) 0.1 K/uL (0.00-0.22); BASOPHILS % (AUTO) 0.7 % (0.0-2.0); EOSINOPHILS # (AUTO) 0.1 K/uL (0-0.4); EOSINOPHILS % (AUTO) 0.8 % (0.0-4.0); HEMATOCRIT 24.6 % (36-48); HEMOGLOBIN 7.1 g/dL (12.0-16.0); LYMPHOCYTES # (AUTO) 2.2 K/uL (2.5-16.5); LYMPHOCYTES % (AUTO) 27.8 % (20.5-51.1); MEAN CORPUSCULAR HEMOGLOBIN 17 pg (27-31); MEAN CORPUSCULAR HGB CONC 29 g/dL (33-37); MEAN CORPUSCULAR VOLUME 59.3 fL (80-94); MONOCYTES # (AUTO) 0.6 K/uL (0.8-1.0); MONOCYTES % (AUTO) 7.5 % (1.7-9.3); NEUTROPHILS % (AUTO) 63.2 % (42.2-75.2); PLATELET COUNT (AUTO) 355 K/uL (140-450); RED BLOOD CELL COUNT(AUTO) 4.15 MIL/uL (4.20-5.40); RED CELL DISTRIBUTION WIDTH 20.4 % (11.6-13.7); WHITE BLOOD COUNT (AUTO) 7.9 K/uL (4.8-10.8)
[2022-09-25 10:50] LABS: ALBUMIN 3.3 g/dL (3.4-5.0); ANION GAP 14.1 (8-16); CARBON DIOXIDE 26.9 mmol/L (21-32); CREATININE 0.4 mg/dL (0.6-1.3); TOTAL BILIRUBIN 0.4 mg/dL (0.0-1.0)
[2022-09-25] MEDS ORDERED: HYDROmorphone PFS 2 MG/ML SYR IVP ONE (11:05)
[2022-09-25 11:32] LABS: BILIRUBIN,URINE NEGATIVE (NEGATIVE); BLOOD, URINE 2+ (NEGATIVE); COLOR,URINE YELLOW (YELLOW); LEUKOCYTE ESTERASE ,URINE 3+ (NEGATIVE); NITRITE, URINE NEGATIVE (NEGATIVE); UGLUCOSE NEGATIVE (NEGATIVE)
[2022-09-25 11:51] LABS: APPEARANCE,URINE HAZY (CLEAR)
[2022-09-25 11:53] LABS: CALCIUM OXALATE CRYSTALS,UR None Seen /HPF (None Seen); COARSE GRANULAR CASTS,URINE None Seen /LPF (None Seen); FINE GRANULAR CASTS,URINE None Seen /LPF (None Seen); HYALINE CASTS, URINE None Seen /LPF (None Seen); OTHER CASTS, URINE None Seen /LPF (None Seen); OTHER CRYSTALS,URINE None Seen /HPF (None Seen); RED BLOOD CELL CASTS,URINE None Seen /LPF (None Seen); TRICHOMONAS,URINE None Seen /HPF (None Seen); TRIPLE PHOSPHATE CRYSTAL,UR None Seen /HPF (None Seen); URIC ACID CRYSTALS,URINE None Seen /HPF (None Seen); URINE AMORPHOUS URATE None Seen /HPF (None Seen); WAXY CASTS,URINE None Seen /LPF (None Seen); YEAST,URINE None Seen /HPF (None Seen)
[2022-09-25] MEDS ORDERED: cefTRIAXone 1,000 MG VIAL ONE (12:54)
[2022-09-25] MEDS ORDERED: HYDROcodone/APAP 10/325 MG 1 TAB TAB PO ONE (13:10)
[2022-09-25] MEDS ORDERED: CEPH-588 PO (13:43)
[2022-09-25] MEDS ORDERED: FERR325E14 PO (13:43)
--- NOTE | 2022-09-25 13:52 | NUR ---
PT STATES SHES IN PAIN LEVEL 8. PROVIDER AWARE OF PAIN LEVEL. PROIVIDER ORDERED NORCO 10. PT OFFERED FOOD AND DRINK. PT STATES SHE WILL TAKE NORCO 10. PTS VITALS STABLE. WILL CONTINUE TO MONITOR PT FOR ANY ADVERSE REACTIONS.
--- NOTE | 2022-09-25 14:09 | NUR ---
Pt states shes ready to go home. pt has had no adverse reactions to norco.
[2022-09-25 14:25] VITALS: BP 129/69
--- NOTE | 2022-09-25 14:25 | NUR ---
Patient discharged with v/s stable. Written and verbal after care instructions given and explained. Patient verbalized understanding. Ambulatory with steady gait. All questions addressed prior to discharge. Advised to follow up with PMD.
== END 2022-09-25 14:25 | disposition home or self-care (01) ==
LOC: MED 08:48
DX: N39.0 Urinary tract infection, site not specified (principal); D50.9 Iron deficiency anemia, unspecified; G89.29 Other chronic pain; Z90.49 Acquired absence of other specified parts of digestive tract; Z79.899 Other long term (current) drug therapy
CPT/HCPCS: 36415; 74176; 80053; 81001; 81025; 83690; 84703; 85025; 87086; 96365; 96375; 99285; J0696; J1170; J2270

== ENCOUNTER 2023-01-15 13:37 | Emergency (ER) | payer OTHER ==
[~2023-01-15] VITALS: Ht 172.7 cm; Wt 181.4 kg
[~2023-01-15 13:37] MED LIST changes: +CEPH-588 PO; +FERR325E14 PO
[2023-01-15 13:45] VITALS: BP 160/78; PULSE 115; RESP 18; TEMP 100.3; O2SAT 97
[2023-01-15] MEDS ORDERED: IBUPROFEN 600 MG TAB PO ONE (14:00)
[2023-01-15 14:40] VITALS: BP 160/78; PULSE 115; RESP 18; TEMP 100.3; O2SAT 97
[2023-01-15 14:40] LABS: FLU A ANTIGEN negative (NEGATIVE); FLU B ANTIGEN NEGATIVE (NEGATIVE)
[2023-01-15] MEDS ORDERED: NACL 0.9% 1,000 ML IV ONE (15:50)
[2023-01-15] MEDS ORDERED: MORPHINE SULFATE 4 MG/ML SYR IVP ONE (15:50)
[2023-01-15] MEDS ORDERED: CEPH-588 PO (17:47)
[2023-01-15] MEDS ORDERED: cefTRIAXone 1,000 MG VIAL ONE (17:51)
== END 2023-01-15 18:32 | disposition home or self-care (01) ==
LOC: MED 13:37
DX: N39.0 Urinary tract infection, site not specified (principal); G89.29 Other chronic pain; M54.50 Low back pain, unspecified; Z20.822 Contact with and (suspected) exposure to COVID-19; Z79.899 Other long term (current) drug therapy; Z79.2 Long term (current) use of antibiotics; Z79.1 Long term (current) use of non-steroidal anti-inflammatories (NSAID)
CPT/HCPCS: 71045; 81002; 87426; 87804; 96361; 96365; 96375; 99284; J0696; J2270; J7030

== ENCOUNTER 2024-01-24 01:44 | Emergency (ER) | payer OTHER ==
[~2024-01-24] VITALS: Ht 172.7 cm; Wt 153.3 kg
[~2024-01-24 01:44] MED LIST changes: -ACET-10509 PO; +ACET500T99 PO
[2024-01-24 01:49] VITALS: BP 121/39; PULSE 74; RESP 20; TEMP 97.5; O2SAT 97
[2024-01-24] MEDS: KETOROLAC 30 MG/ML VIAL IVP ONE (02:06)
[2024-01-24] MEDS: MORPHINE SULFATE 4 MG/ML SYR IVP ONE (02:07)
[2024-01-24] MEDS ORDERED: NAPR-337 PO (05:03)
[2024-01-24 05:08] VITALS: BP 121/39; PULSE 74; RESP 20; TEMP 97.5; O2SAT 97
== END 2024-01-24 05:08 | disposition home or self-care (01) ==
LOC: MED 01:44
DX: G89.29 Other chronic pain (principal); M54.50 Low back pain, unspecified; Z79.899 Other long term (current) drug therapy
CPT/HCPCS: 96374; 96375; 99284; J1885; J2270

== ENCOUNTER 2024-02-07 22:48 | Emergency (ER) | payer OTHER ==
[~2024-02-07] VITALS: Ht 172.7 cm; Wt 154.2 kg
[~2024-02-07 22:48] MED LIST changes: +NAPR-337 PO
[2024-02-07 22:59] VITALS: BP 132/75; PULSE 83; RESP 18; TEMP 98.3; O2SAT 99
[2024-02-07 23:22] VITALS: O2SAT 99
[2024-02-07 23:25] VITALS: BP 132/75; PULSE 83; RESP 18; TEMP 98.3; O2SAT 99
[2024-02-08] MEDS ORDERED: NAPR-337 PO (00:07)
== END 2024-02-08 00:28 | disposition home or self-care (01) ==
LOC: MED 22:48
DX: G89.29 Other chronic pain (principal); M54.50 Low back pain, unspecified; Z79.899 Other long term (current) drug therapy; Z90.49 Acquired absence of other specified parts of digestive tract; Z98.890 Other specified postprocedural states; V43.52XA Car driver injured in collision with other type car in traffic accident, initial encounter; Y93.89 Activity, other specified; Y92.411 Interstate highway as the place of occurrence of the external cause; Y99.8 Other external cause status
CPT/HCPCS: 99282; 99283